=== PATIENT | male | born 1990 | race African-American/Black ===

== ENCOUNTER 2018-08-04 03:48 | Inpatient (IN) | payer OTHER, SELFPAY ==
[2018-08-04 04:17] LABS: Hemoglobin 13.9 g/dL (14.0-18.0); Mean Corpuscular Hemoglobin 28.3 pg (27.0-31.0); Mean Corpuscular Volume 85.7 fL (78.0-98.0); Mean Platelet Volume 8.1 fL (7.4-10.4); Platelet Count 286 thou/uL (130-400); RBC Distribution Width 12.2 % (11.5-14.5); White Blood Cell (WBC) Count 23.4 thou/uL (4.8-10.8)
[2018-08-04 04:19] LABS: PTT 28.5 SEC (22.9-36.1); Prothrombin Time 13.2 SEC (12.0-14.7)
[2018-08-04 04:27] LABS: ALT (SGPT) 31 U/L (8-55); AST (SGOT) 34 U/L (5-34); Albumin 3.7 g/dL (3.5-5.0); Alcohol Less than 10 mg/dL (Less than 10); Alkaline Phosphatase 60 U/L (40-150); Anion Gap 10 mmol/L (10-20); BUN (Urea Nitrogen) 12 mg/dL (8.9-20.6); Bilirubin, Total 0.4 mg/dL (0.2-1.2); Calc. Creatinine Clearance 0 mL/min (70-130); Calcium 8.6 mg/dL (7.8-10.44); Carbon Dioxide 26 mmol/L (22-29); Chloride 105 mmol/L (98-107); Estimated GFR-MDRD 84; Globulin 3.6 g/dL (2.4-3.5); Glucose 101 mg/dL (70-105); Lipase 54 U/L (8-78); Potassium 3.7 mmol/L (3.5-5.1); Protein, Total 7.3 g/dL (6.0-8.3); Sodium 137 mmol/L (136-145)
[2018-08-04 04:42] LABS: Band 5 % (5-11); Eosinophils 1 % (0-10); Lymphocytes 16 % (21-51); MDiff Complete? YES; Monocytes 7 % (0-10); Neutrophil 71 % (42-75); PLT Morphology Comment Appears Adequate
[2018-08-04] MEDS ORDERED: Ondansetron ODT 4 MG TAB PO PRN (06:28)
[2018-08-04] MEDS ORDERED: TETANUS AND DIPHTHERIA TOX/PF 0.5 ML DISP.SYRIN IM ONE (06:28)
[2018-08-04] MEDS ORDERED: Ondansetron PF 4 MG/2 ML Vial IVP PRN (06:28)
[2018-08-04] MEDS ORDERED: Morphine 2 MG/ML SYRINGE IVP PRN (06:28)
[2018-08-04] MEDS ORDERED: Dextrose 5% in Water 1,000 ML IV PRN (06:28)
[2018-08-04] MEDS ORDERED: Dextrose 50% Abboject 50 ML SYRINGE SLOW IVP PRN (06:28)
--- NOTE | 2018-08-04 08:17 | RAD ---
LEFT KNEE RADIOGRAPHS 4 VIEWS: DATE: 08/04/2018. PROVIDED CLINICAL HISTORY: Left knee pain status post injury. FINDINGS: There is no evidence for a fracture or other acute osseous abnormality. If there is persistent clini rob concern, conservative management and followup imaging are advised. IMPRESSION: As above. POS: [facility]
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
--- NOTE | 2018-08-04 08:25 | RAD ---
PELVIC RADIOGRAPH: DATE: 08/04/2018. PROVIDED CLINICAL HISTORY: Pain status post injury. FINDINGS: The right lateral aspect of the proximal femur is not included on the image, limiting evaluation. Gi oyng this limitation, there is no evidence for a fracture or other acute osseous abnormality. If ther e is persistent clinical concern, conservative management and followup imaging are advised. IMPRESSION: As above. POS: [facility]
[2018-08-04 08:48] VITALS: BMI 42.2
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
[2018-08-04] MEDS ORDERED: traMADol HCl 50 MG TAB PO PRN ×2 (09:26)
[2018-08-04] MEDS ORDERED: Ketorolac Tromethamine 30 MG/ML VIAL IVP SCH ×2 (09:30→12:00)
[2018-08-04] MEDS ORDERED: Acetaminophen 1,000 MG in Premix Bag 1 BAG IVPB SCH ×2 (09:30→12:00)
[2018-08-04] MEDS: Sodium Chloride 0.9% 1,000 ML IV SCH ×2 (10:38→18:45)
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
[2018-08-04] MEDS ORDERED: Iopamidol 370 76% 100 ML VIAL ONE (13:40)
[2018-08-04] MEDS: Ibuprofen 800 MG TAB PO SCH ×2 (14:35→21:04)
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
[2018-08-04] MEDS: Acetaminophen 500 MG TAB PO SCH ×2 (18:17→21:03)
[2018-08-04] MEDS: Senokot S 8.6-50 MG TAB PO SCH (21:03)
[2018-08-05] MEDS: Acetaminophen 500 MG TAB PO SCH ×4 (04:29→21:02)
[2018-08-05 05:42] LABS: #Eosinphils 0.2 thou/uL (0.0-0.7); #Monocytes 0.8 thou/uL (0.11-0.59); #Neutrophils 5.2 thou/uL (1.40-6.50); %Basophils 0.4 % (0.0-1.0); %Eosinophils 2.3 % (0.0-10.0); %Lymphocytes 32.6 % (21.0-51.0); %Neutrophils 55.7 % (42.0-75.0); Mean Corpuscular Hemoglobin 28.3 pg (27.0-31.0); Mean Corpuscular Volume 85.8 fL (78.0-98.0); Platelet Count 256 thou/uL (130-400); RBC Distribution Width 12.4 % (11.5-14.5); Red Blood Cell (RBC) Count 4.57 mill/uL (4.70-6.10); White Blood Cell (WBC) Count 9.3 thou/uL (4.8-10.8)
[2018-08-05 06:12] LABS: Anion Gap 9 mmol/L (10-20); BUN (Urea Nitrogen) 11 mg/dL (8.9-20.6); Calc. Creatinine Clearance 219 mL/min (70-130); Calcium 8.8 mg/dL (7.8-10.44); Carbon Dioxide 27 mmol/L (22-29); Chloride 107 mmol/L (98-107); Estimated GFR-MDRD Greater than 90; Glucose 89 mg/dL (70-105); Potassium 3.9 mmol/L (3.5-5.1); Sodium 139 mmol/L (136-145)
[2018-08-05] MEDS: Ibuprofen 800 MG TAB PO SCH ×3 (06:57→21:02)
[2018-08-05] MEDS: Senokot S 8.6-50 MG TAB PO SCH ×2 (08:57→21:02)
[2018-08-06] MEDS: Acetaminophen 500 MG TAB PO SCH ×2 (06:01→09:58)
[2018-08-06] MEDS: Ibuprofen 800 MG TAB PO SCH (06:03)
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
[2018-08-06] MEDS: Senokot S 8.6-50 MG TAB PO SCH (08:43)
[2018-08-06 11:35] VITALS: BP 146/87; TEMP 97.8
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
--- NOTE | 2018-08-07 15:02 | EKG ---
Test Reason : Blood Pressure : / mmHG Vent. Rate : 092 BPM Atrial Rate : 092 BPM P-R Int : 156 ms QRS Dur : 092 ms QT Int : 366 ms P-R-T Axes : 036 066 012 degrees QTc Int : 452 ms Normal sinus rhythm Normal ECG Confirmed by SAM TAN M.D. ([id number]), primer expeditor and drier JESSEE ARCHULETA ([id number]) on 08/07/2018 3:01:56 PM Referred By: Confirmed By:SAM TAN M.D.
== END 2018-08-06 12:45 | disposition home or self-care (01) | DRG 914 ==
LOC: ERS 03:48 → SURG A 08:35
PROVIDERS: ADMIT Specialist; ATTEND Specialist
DX: S36.899A Unspecified injury of other intra-abdominal organs, initial encounter (principal); V49.9XXA Car occupant (driver) (passenger) injured in unspecified traffic accident, initial encounter
CPT/HCPCS: 36415; 70450; 71045; 71260; 72125; 72170; 74177; 80048; 80053; 80307; 83690; 85025; 85610; 85730; 93005; G0390; G8978-GP-CJ; G8979-GP-CJ; G8980-GP-CJ; J0131; J1885